=== PATIENT | female | born 1940 | race Caucasian/White ===

== ENCOUNTER → 2017-02-07 | Outpatient (CLI) | payer MEDICARE ==
[~2017-02-07] MED LIST: ACYC400T PO; ASPI81 PO; ASPI81CH CHEW; CALC500 PO; DONNTAB12 PO; ESTR.025T TD; ESTR0.02 T-DERMAL; ESTR42.5V VAGINAL; FENO50TA PO; GABA250S PO; HYDR12.56 PO; IMDU30TA PO; NEXI20CA PO; OMEP10CA PO; OSCA200T PO; ROSU10 PO; SIMV20 PO; TYLE500T PO; VAGI10TA VAGINAL; VAGI25TA4 PV
[2017-02-07 14:07] LABS: ANION GAP 6 MEQ/L (5-15); AST (GOT) 22 U/L (15-37); BLOOD UREA NITROGEN 17 MG/DL (7-18); CHLORIDE 105 MEQ/L (98-107); GLOMERULAR FILTRATION RATE 62 ML/MIN (>89); GLUCOSE,FASTING 103 MG/DL (74-99); SODIUM (NA) 141 MEQ/L (136-145)
[2017-02-07 14:17] LABS: ALKALINE PHOSPHATASE 47 U/L (45-117); ALT (GPT) 32 U/L (10-53); HDL CHOLESTEROL 53.1 MG/DL (40.0-60.0); LDL CHOLESTEROL 64 MG/DL (0-99); TOTAL BILIRUBIN ADULT 0.4 MG/DL (0.2-1.0)
== END ==
LOC: PLAB 10:11
PROVIDERS: ATTEND Family Medicine
DX: I25.10 Atherosclerotic heart disease of native coronary artery without angina pectoris (principal)
CPT/HCPCS: 36415; 80053; 80061

== ENCOUNTER 2017-02-16 13:09 | Emergency (ER) | payer OTHER, MEDICARE ==
[~2017-02-16] VITALS: Ht 162.6 cm; Wt 80.9 kg
[~2017-02-16 13:09] MED LIST changes: -ACYC400T PO; -ASPI81CH CHEW; -ESTR0.02 T-DERMAL; -ESTR42.5V VAGINAL; -OMEP10CA PO; -OSCA200T PO; -ROSU10 PO; -VAGI10TA VAGINAL
[2017-02-16 13:18] VITALS: BP 134/71; PULSE 74; RESP 16; TEMP 98; O2SAT 95
[2017-02-16] MEDS ORDERED: ACYC400T PO (13:48)
[2017-02-16] MEDS ORDERED: ASPI81CH CHEW (13:48)
[2017-02-16] MEDS ORDERED: ROSU10 PO (13:48)
[2017-02-16] MEDS ORDERED: ESTR42.5V VAGINAL (13:49)
[2017-02-16] MEDS ORDERED: ESTR0.02 T-DERMAL (13:49)
[2017-02-16] MEDS ORDERED: OMEP10CA PO (13:50)
[2017-02-16] MEDS ORDERED: OSCA200T PO (13:50)
[2017-02-16] MEDS ORDERED: VAGI10TA VAGINAL (13:51)
[2017-02-16] MEDS ORDERED: ACETAMINOPHEN 500 MG CPLT PO ONE (14:15)
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
== END 2017-02-16 15:15 | disposition home or self-care (01) ==
LOC: PHEFT 13:09
DX: S16.1XXA Strain of muscle, fascia and tendon at neck level, initial encounter (principal); V43.02XA Car driver injured in collision with other type car in nontraffic accident, initial encounter; Y93.89 Activity, other specified; Y92.481 Parking lot as the place of occurrence of the external cause; Y99.8 Other external cause status
CPT/HCPCS: 70450; 72125; 99284; L0150

== ENCOUNTER → 2017-11-13 | Outpatient (CLI) | payer MEDICARE ==
[~2017-11-13] MED LIST changes: +ACYC400T PO; +ASPI-516 CHEW; -ASPI81 PO; -CALC500 PO; -DONNTAB12 PO; -ESTR.025T TD; +ESTR0.02 T-DERMAL; +ESTR42.5V VAGINAL; -FENO50TA PO; -GABA250S PO; -HYDR12.56 PO; -IMDU30TA PO; -NEXI20CA PO; +OMEP10CA PO; +OSCA200T PO; +ROSU10 PO; -SIMV20 PO; -TYLE500T PO; +VAGI10TA VAGINAL; -VAGI25TA4 PV
[2017-11-13 13:55] LABS: ALBUMIN 3.9 GM/DL (3.4-5.0); ALT (GPT) 35 U/L (10-53); AST (GOT) 23 U/L (15-37); BICARBONATE 27.6 MEQ/L (21.0-32.0); BLOOD UREA NITROGEN 23 MG/DL (7-18); CALCIUM 8.7 MG/DL (8.5-10.1); CHLORIDE 107 MEQ/L (98-107); CHOLESTEROL 149 MG/DL (120-200); CREATININE 0.82 MG/DL (0.50-1.00); GLOMERULAR FILTRATION RATE 67 ML/MIN (>89); GLUCOSE,FASTING 106 MG/DL (74-99); SODIUM (NA) 142 MEQ/L (136-145); TRIGLYCERIDES 126 MG/DL (42-150)
[2017-11-13 13:57] LABS: ALKALINE PHOSPHATASE 50 U/L (45-117); CHOLESTEROL/ HDL RATIO 2.93 RATIO; HDL CHOLESTEROL 50.8 MG/DL (40.0-60.0); LDL CHOLESTEROL 73 MG/DL (0-99); TOTAL BILIRUBIN ADULT 0.4 MG/DL (0.2-1.0); TOTAL PROTEIN 6.8 GM/DL (6.4-8.2)
== END ==
LOC: PLAB 10:10
PROVIDERS: ATTEND Family Medicine
DX: E78.2 Mixed hyperlipidemia (principal)
CPT/HCPCS: 36415; 80053; 80061